=== PATIENT | male | born 1990 | race Caucasian/White ===

== ENCOUNTER 2017-08-01 11:39 | Emergency (ER) | payer OTHER ==
[2017-08-01 11:49] VITALS: RESP 16; TEMP 98.6
[2017-08-01] MEDS ORDERED: CYCLOBENZAPRINE 10 MG TAB PO ONE (13:05)
[2017-08-01] MEDS ORDERED: IBUPROFEN 600 MG TAB PO ONE (13:05)
[2017-08-01] MEDS ORDERED: ACETAMINOPHEN 500 MG TAB PO ONE (13:05)
--- NOTE | 2017-08-01 13:09 | EDPHY ---
H & P Stated Complaint: Severe mid back pain since last night. Time Seen by Provider: 08/01/17 12:54 HPI/ROS: CHIEF COMPLAINT: Thoracic back pain HISTORY OF PRESENT ILLNESS: 27-year-old male generally healthy, works a desk based computer job, states that he was feeling slight amount of stiffness in his back after work yesterday, sat in the steam room for extended period and noticed later on that evening worsening pain which progressed to this morning. No trauma. No dyspnea. Pain is reproducible with movement and deep inspiration. No chest pain. No syncope or near syncope. Nonsmoker. No illicit drug use. No coagulopathic disorder. No low back pain. No incontinence no retention. No saddle anesthesia. No peripheral radiculopathy. REVIEW OF SYSTEMS: A ten point review of systems was performed and is negative with the exception of the items mentioned in the HPI PAST MEDICAL & SURGICAL HISTORY: No pertinent medical or surgical history SOCIAL HISTORY:nonsmoker. No IV drug user PHYSICAL EXAM (Prior to examination, patient consented to physical exam, hands were washed and my usual and customary physical exam procedures followed) Patient evaluated in emergency department triage room secondary to emergency department volume at this time. 1) GENERAL: Well-developed, well-nourished, alert and oriented. Appears uncomfortable, stiff. 2) HEAD: Normocephalic, atraumatic 3) HEENT: Pupils equal, round, reactive to light bilaterally. Sclera anicteric. 4) NECK: Full range of motion, no meningeal signs. 5) LUNGS: Clear auscultation bilaterally, no wheezes, no rhonchi, no retractions. 6) HEART: Regular rate and rhythm, no murmur, no heave, no gallop. 7) ABDOMEN: No guarding, no rebound, no focal tenderness, negative McBurney's, negative Tang's, negative Rovsing's, negative peritoneal sign, 8) MUSCULOSKELETAL: Moving all extremities, no focal areas of tenderness, no obvious trauma. No peripheral edema or discoloration. 9) BACK: No CVA tenderness, tender to palpation paraspinous thoracic muscles approximately T7 level, no midline vertebral tenderness, no fluctuance, no step- off, no obvious trauma, no visual or palpable abnormality. 10) SKIN: No rash, no petechiae. 11) Psychiatric: Patient is oriented X 3, there is no agitation. DIFFERENTIAL DIAGNOSIS: in no particular order including but not limited to acute muscle strain, aortic dissection, PE, discogenic etiology, infectious spinal etiology - Personal History Current Tetanus Diphtheria and Acellular Pertussis (TDAP): Yes - Medical/Surgical History Hx Asthma: No Hx Chronic Respiratory Disease: No Hx Diabetes: No Hx Cardiac Disease: No Hx Renal Disease: No Hx Cirrhosis: No Hx Alcoholism: No Hx HIV/AIDS: No Hx Splenectomy or Spleen Trauma: No Other PMH: Denies - Social History Smoking Status: Never smoked Constitutional: Initial Vital Signs Temperature (C) 37 C 08/01/17 11:45 Heart Rate 107 H 08/01/17 11:45 Respiratory Rate 16 08/01/17 11:45 Blood Pressure 133/111 H 08/01/17 11:45 O2 Sat (%) 96 08/01/17 11:45 O2 Delivery Mode Room Air Allergies/Adverse Reactions: No Known Allergies Allergy (Unverified 06/05/11 05:38) Home Medications: Medication Instructions Recorded No Medications [NO HOME 1 ea [facility] [place]ICATIONS] Cyclobenzaprine [Flexeril 10 MG 10 mg PO TID #15 tab 08/01/17 (RX)] Ibuprofen [Motrin (*)] 800 mg PO Q6 #15 tab 08/01/17 Medical Decision Making - Diagnostics Imaging Results: Imaging Impressions Chest X-Ray 08/01/17 13:06 Impression: Clear lungs. No acute process. Images reviewed by myself ED Course/Re-evaluation: 1:09 p.m.: Chest x-ray will be obtained to rule out pneumothorax. He prefers oral analgesia only. He is low risk for pulmonary embolus. Re-evaluation, given oral analgesics. Discussed his negative chest x-ray. Doubt AAA, doubt pneumothorax, doubt pulmonary embolus. Discussed possible muscular etiology. I do not think that further diagnostic studies indicated from the emergency department. Plan will be discharge with usual customary discharge precautions instructions, Flexeril, ibuprofen, cold packs. He feels comfortable with this plan. Care of patient under supervision of primary supervising physician Dr Wooten . - Data Points Medications Given: Discontinued Medications Acetaminophen (Tylenol) 1,000 mg PO EDNOW ONE Stop: 08/01/17 13:06 Last Admin: 08/01/17 13:23 Dose: 1,000 mg Cyclobenzaprine HCl (Flexeril) 10 mg PO EDNOW ONE Stop: 08/01/17 13:06 Last Admin: 08/01/17 13:23 Dose: 10 mg Ibuprofen (Motrin) 800 mg PO EDNOW ONE Stop: 08/01/17 13:06 Last Admin: 08/01/17 13:23 Dose: 800 mg Departure - Departure Disposition: Home, Routine, Self-Care Clinical Impression: Strain of muscle at thorax level Condition: Good Instructions: Muscle Spasm (ED) Additional Instructions: Seek medical attention if you develop new or worsening pain, if you develop bladder or bowel dysfunction, numbness around your perineum, foot drop, or any other symptoms that concern you. Referrals: Shannon Chapman MD [Medical Doctor] - 5-7 days, call for appt. Prescriptions: Cyclobenzaprine [Flexeril 10 MG (RX)] 10 mg PO TID #15 tab Ibuprofen [Motrin (*)] 800 mg PO Q6 #15 tab
[2017-08-01 14:08] VITALS: BP 159/86; PULSE 75; O2SAT 93
== END 2017-08-01 14:08 | disposition home or self-care (01) ==
DX: S29.012A Strain of muscle and tendon of back wall of thorax, initial encounter (principal); X58.XXXA Exposure to other specified factors, initial encounter